=== PATIENT | male | born 1960 | race Caucasian/White ===

== ENCOUNTER → 2018-04-11 15:27 | Outpatient (CLI) | payer OTHER, SELFPAY ==
--- NOTE | 2018-04-11 | DI.CT.S_ITS ---
PROCEDURE: CT ABDOMEN PELVIS WO/W CON INDICATIONS: HEMATURIA TECHNIQUE: Optional 5 mm thick noncontrast images acquired from the diaphragm to the symphysis pubis. After the administration of intravenous contrast, 5 mm thick images acquired from the diaphragm to the symphysis pubis after a 10-minute delay. 2 mm thick coronal and sagittal reformats were then performed of the kidneys and ureters. For radiation dose reduction, the following was used: automated exposure control, adjustment of mA and/or kV according to patient size. COMPARISON: [place], [place], BONE SCAN WHOLE BODY, 12/21/2012, 14:43. FINDINGS: Image quality: Excellent. Lung bases: Lung bases are clear. Heart size is normal. A small hiatal hernia is incidentally noted. Urinary system: Both kidneys are normal in size, without hydronephrosis or nephrolithiasis on pre-contrast images. No perinephric fat stranding. There is normal bilateral renal enhancement. There is a nonenhancing right renal cyst is seen posteriorly and inferiorly measuring 2.8 cm and 8 Hounsfield units. Renal calyces appear normal in morphology when filled with contrast. Opacified portions of both ureters demonstrate normal caliber. Bladder wall thickness is normal. No calcified bladder stones. Other solid organs: Liver is normal in size and enhancement. Gallbladder wall does not appear thickened. Biliary system is non dilated. Pancreas enhances normally. Spleen is normal in size and enhancement. Bilateral thickening can be seen on the adrenal glands, yet without shakila adrenal nodules. Peritoneum and bowel: Bowel loops demonstrate normal wall thickness and caliber. No free fluid or air. Diverticulosis is seen, without findings of active diverticulitis. Nodes and vessels: No retroperitoneal or mesenteric adenopathy by size criteria. Aorta and inferior vena cava are normal in size. Atherosclerotic calcification is noted. Abdominal wall: No ventral hernias. Pelvis: No pathologic free pelvic fluid. No inguinal hernias or adenopathy. Bones: No suspicious bony lesions. No vertebral body compression fractures. Degenerative changes are seen throughout, which are most prominent involving the lower lumbar spine. IMPRESSION: No imaging explanation is found for this patient's presenting history of hematuria. Specifically, no renal stones or renal masses can be seen. No ureteral masses or bladder lesions can be seen. Incidental note is made of: Simple appearing right renal cyst Small hiatal hernia Diverticulosis is seen, without findings of active diverticulitis. Dictated by: Javier Cueto M.D. on 04/11/2018 at 15:13 Approved by: Javier Cueto M.D. on 04/11/2018 at 15:17
== END ==
PROVIDERS: Visit Provider Family Medicine
DX: R31.9 Hematuria, unspecified (principal); N28.1 Cyst of kidney, acquired; K44.9 Diaphragmatic hernia without obstruction or gangrene; K57.90 Diverticulosis of intestine, part unspecified, without perforation or abscess without bleeding
CPT/HCPCS: 74178; Q9967

== ENCOUNTER → 2018-04-23 07:30 | Outpatient (CLI) | payer OTHER, SELFPAY ==
--- NOTE | 2018-04-23 | DI.MRI.S_ITS ---
PROCEDURE: MR LOWER LEG RT WO CON INDICATIONS: RIGHT PROXIMAL TIBIA MASS TECHNIQUE: Noncontrast coronal and sagittal T1 spin echo and STIR; axial T1 spin echo and T2 fast spin echo with fat saturation through the right tibia and fibula. COMPARISON: Outside Facility, [place], MRI LOWER EXT. JOINT W/WO CONTRAST, 05/28/2014, 8:07. Outside Facility, [place], MRI LOWER EXT. JOINT W/O CONTRAST, 02/21/2017, 9:04. [facility], [place], XR KNEE 3 VIEWS RIGHT, 02/21/2017, 11:48. FINDINGS: Image quality: Excellent. Bones: The visualized bone marrow demonstrates normal overall signal. There are 2 lobulated heterogeneous T2 hyperintense and T1 hypointense lesions redemonstrated within the distal femur. The larger lesion measures up to 2.3 x 1.8 x 2.0 cm and the smaller lesion measures 1.0 x 0.6 x 1.0 cm. These appear stable in size compared to the prior study with minimal increase in size compared to 05/28/14 study. The findings are compatible with chondroid lesions. Within the proximal tibia, there is a small lobulated T2 hyperintense lesion centrally adjacent to the ACL insertion measuring up to 0.8 x 0.5 x 0.7 cm. This appears stable in size compared to the prior studies. This may also represent a chondroid lesion versus a ganglion cyst. The overlying cortex appears intact. No fractures lines or bone contusions. Soft tissues: There is a minimal knee joint effusion. Small Gaytan's cyst is also noted. The knee structures are not well evaluated on the current study. The scanned muscles demonstrate normal overall bulk and internal signal. Subcutaneous tissues appear normal as well. No discrete soft tissue masses are identified. IMPRESSION: 1. 2 lobulated chondroid lesions within the distal femur appear stable in size compared to the prior 2016 study with minimal increase compared to the 2013 study. 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 2. Lobulated T2 hyperintense lesion within the proximal tibia may also represent a small chondroid lesion although its location also raises the possibility of an intraosseous ganglion cyst. This appears stable compared to the prior studies. Dictated by: Aj Ramirez M.D. on 04/23/2018 at 13:16 Approved by: Aj Ramirez M.D. on 04/23/2018 at 13:52
== END ==
PROVIDERS: Visit Provider Family Medicine
DX: M89.8X5 Other specified disorders of bone, thigh (principal); M89.8X6 Other specified disorders of bone, lower leg
CPT/HCPCS: 73718

== ENCOUNTER 2018-05-24 08:32 | Day surgery (SDC) | payer OTHER, SELFPAY ==
[2018-05-22 15:12] VITALS: BMI 24.7
[2018-05-24] VITALS (14 sets, daily range): BP systolic 94–129; BP diastolic 48–81; PULSE 72–91; RESP 10–16; TEMP 36–36.4; O2SAT 93–99; BMI 24.7
--- NOTE | 2018-05-24 09:53 | PM.PREOP ---
Pre-operative Note Interval Note Pre-op Check: Yes History & Physical Reviewed by Physician and Yes Exam Performed Changes: No
[2018-05-24] MEDS: CEFAZOLIN 2 GM/100 ML FROZ.PIGGY IV (10:10)
[2018-05-24] MEDS: LACTATED RINGERS 1,000 ML 100 ML IV ×3 (10:15→14:05)
--- NOTE | 2018-05-24 10:35 | SUR.OPER ---
Lateral on padded OR bed, head on pillow, bottom leg bent with gel pad under knee to foot, upper leg straight and supported with pillows. Upper arm supported by pillows and secured over chest. Safety belt at hip, tape over blanket lower legs.
[2018-05-24] MEDS: BUPIVACAINE 0.5% (PF) VIAL 30 ML INJ (10:51)
--- NOTE | 2018-05-24 12:31 | PM.OP.1 ---
Operative Date/Time/Diagnoses Date of procedure: 05/24/18 Time of procedure: 12:10 Pre-op diagnosis: Probable spigelian hernia left Post-op diagnosis: same Procedure & Clinicians Procedure: Repair with underlay of mesh Same procedure as scheduled: Yes Indications: Bulge left flank after lifting heavy object at work. Clinically consistent with a spigelian hernia Surgeon: Sachin Escoto Click Yes if Unassisted: Yes Anesthesia Type: General Operative Notes Findings: Attenuated area of muscle if the edge of the rectus. Sheet of mesh placed under the muscle wall extensively beyond the confines of this. Closure Type: primary Specimen(s): none sent Implants & Drains: 15 x 10 cm sheet of Atrium mesh Estimated Blood Loss (mL): 10 Procedure in detail: The patient was placed in the partial right lateral decubitus position with the areas padded. He was secured and prepped and draped in the usual fashion. He had been marked preoperatively. An incision was made overlying the area of the bulge beginning near the lateral aspect of the rectus. It was carried down to the external oblique which was opened parallel with its fibers. The internal oblique was similarly opened in parallel with its fibers and the transversalis opened reaching the retroperitoneal preperitoneal space. I gently dissected the fat away from the abdominal wall quite extensively extending to nearly midline anteriorly inferiorly toward the iliac crest superiorly behind the ribcage and laterally behind the latissimus I placed a piece of mesh 10 x 15 tapering it slightly to conform to size in the preperitoneal/retroperitoneal space. I had not entered the abdomen proper. The mass was secured to muscle carefully avoiding any vascular or neurologic structures. This was done circumferentially with a slight laxity in the middle to allow for bulging postoperatively of the preperitoneal fat. Two 0 PDS was a suture used to secure the mesh. This mesh well it well beyond any confines where the bulge had been noted preoperatively. The transversalis was closed with a [id number] interrupted 0 Vicryl. The external and internal obliques were closed with a figure of 8 0 Tycron suture. The subcu was closed with interrupted 3 0 Vicryl and skin was closed running 4 0 Vicryl subcuticular stitch and Steri-Strips. The patient was awakened and taken to the recovery area in good condition. Complications: none Condition: stable Disposition: PACU Plan for aftercare: 10-14 days in the office
[2018-05-24] MEDS: fentaNYL 100 MCG/2 ML INJ 50 MCG IV ×4 (12:35→13:08)
[2018-05-24] MEDS: OXYCODONE/ACETAMINOPHEN 5/325 TABLET 1 TAB PO (12:40)
[2018-05-24] MEDS: ONDANSETRON 4 MG/2 ML INJ IV (12:40)
--- NOTE | 2018-05-24 12:48 | SUR.PHASEI ---
REPORTED PATIENT OFF TO ADA BRADLEY.
--- NOTE | 2018-05-24 12:53 | SUR.PHASEI ---
recieved report from emiliana prince. pt awake , tolerating po fluids, dressing is dry and intact, no redness or swelling at site. pt c/o 01/26 pain, ice pack is in place, will medicate per order.
--- NOTE | 2018-05-24 13:39 | SUR.PHASEII ---
PT ARRIVED TO PHASE II VIA STRETCHER. PT SITTING UP IN BED. PT BROUGHT TO BEDSIDE. IV SITE CLEAR. SURGICAL DRSG OBSERVED TO HAVE SCANT AMOUNT OF DRAINAGE. PT REPORTS NAUSEA IS IMPROVING AND PAIN IS ALSO IMPROVING /. PT REQUESTING TO REST AT THIS TIME. REVIEWED DC INSTRUCTIONS WITH PT AND PT FAMILY. BED IN LOWEST POSITON AND CALL LIGHT GIVEN TO PT.
[2018-05-24] MEDS: METOCLOPRAMIDE 10 MG/2 ML INJ IV (14:09)
--- NOTE | 2018-05-24 14:09 | SUR.PHASEII ---
PT C/O FEELING NAUSATED. PT HAD ONE EMESIS. PROVIDED PT WITH COOL CLOTH, QUEASE EASE AND MEDICATED WITH IV NAUSEA MEDICATION. PT AT BEDSIDE. BED IN LOWEST POSITION AND CALL LIGHT GIVEN TO PT.
--- NOTE | 2018-05-24 14:53 | SUR.PHASEII ---
drsg on surgical site observed to have no change in drainage amount from time pt arrived to phase II
--- NOTE | 2018-05-24 16:32 | P.OP_ITS ---
Operative Date/Time/Diagnoses Date of procedure: 05/24/18 Time of procedure: 16:20 Pre-op diagnosis: Left inguinal hernia reducible Post-op diagnosis: same (Direct left inguinal hernia. Very small lipoma of the cord.) Procedure & Clinicians Procedure: Repair of left inguinal hernia with plug and patch technique Same procedure as scheduled: Yes Indications: Symptomatic hernia Surgeon: Sachin Escoto Click Yes if Unassisted: Yes Anesthesia Type: General Operative Notes Closure Type: primary Specimen(s): none sent Implants & Drains: Mesh. small plug. Estimated Blood Loss (mL): 5 Blood products transfused: none Procedure in detail: The patient was placed supine on the operating room table and underwent general LMA anesthesia. He was prepped and draped in the usual fashion. A transverse incision was made overlying the internal ring on the left side and carried down to the level of the external oblique. The external oblique was opened parallel with its fibers through the external ring. The cord structures were elevated. The cremaster was opened proximally and search made for an indirect sac. The patient had a very small so-called lipoma of the cord. This was dissected from the surrounding cord structures and cauterized at the level of the deep epigastric vessels. I could identify no indirect sac despite searching for 1. His cord was quite diminutive.. The floor was examined and was found to be generally weakened. A small plug was placed in the defect created by the lipoma. This was tacked into place with 0 Tycron sutures. The cremaster muscle was reapproximated with interrupted figure-of- eight 3 0 Vicryl. A patch was placed across the floor and tacked at the pubic tubercle, the posterior lamella of the anterior rectus sheath, the ilioinguinal ligament, and superior lateral to the cord. Sutures of 0 Tycron were used to secure the mesh. The external oblique was closed with a running 3 0 Vicryl. The subcu was closed with interrupted 4 0 Vicryl. The skin was closed with a running 4 0 Vicryl subcuticular stitch and Steri-Strips. Dressing was applied, the patient was awakened, and the patient was taken to the recovery area in good condition. Complications: none Condition: stable Disposition: PACU Plan for aftercare: Follow-up in the office
== END 2018-05-24 12:50 | disposition home or self-care (01) ==
PROVIDERS: PCP Family Medicine; Visit Provider Specialist
PROC: (CPT 49590; principal; 2018-05-24 09:30)
DX: K43.9 Ventral hernia without obstruction or gangrene (principal)
CPT/HCPCS: 49590; C1781; J0690; J1100; J1885; J2250; J2405; J2704; J2765; J3010

== ENCOUNTER 2018-08-17 06:44 | Day surgery (SDC) | payer OTHER, SELFPAY ==
[2018-08-17 07:08] VITALS: BP 112/76; PULSE 90; RESP 15; TEMP 36.9; O2SAT 96; BMI 22.8
--- NOTE | 2018-08-17 08:01 | PM.HP.1 ---
History of Present Illness Date Patient Seen: 08/17/18 Time Patient Seen: 07:50 Chief complaint: [id number] Narrative: The patient is gentleman here for screening colonoscopy. His last exam was 5 years ago. Polyps removed at that time. Patient History Medical History Benign neoplasm of tibia (Acute) History of torn meniscus of right knee (Acute) [place] teeth removed (Acute) Surgical History Status post spigelian hernia repair, follow-up exam (Resolved) H/O left inguinal hernia repair (Resolved 01/03/17) Family History Father Heart disease Diabetes mellitus Stroke Social History marital status: household members: spouse and children occupational status: employed Smoking Status: Smoker, status unknown alcohol intake: current substance use type: does not use Family & Social History Family History Father Heart disease Diabetes mellitus Stroke Social History: household members spouse,children Tobacco & Substance use: Tobacco type cigarettes Smoking Status Smoker, status unknown alcohol intake current Substance Use Type does not use Meds Home Medications Medication Instructions Recorded Confirmed Type tamsulosin 0.4 mg PO DAILY 08/17/18 08/17/18 History Allergies Allergy/AdvReac Type Severity Reaction Status Date / Time No Known Drug Allergies Allergy Verified 08/17/18 06:56 Review of Systems Review of Systems All systems reviewed & are unremarkable except as noted in HPI and below Exam Vital Signs (past 8 hours): - 08/17/18 07:08 Temperature 98.4 F Pulse Rate 90 Respiratory Rate 15 Blood Pressure 112/76 Pulse Oximetry 96 Oxygen Delivery Method Room Air Narrative Exam Narrative: No apparent distress. Eyes nonicteric. Lungs are clear to auscultation no rales or rhonchi. Heart regular rate and rhythm no murmurs gallops. Abdomen soft nontender without mass. No obvious recurrence of his hernia. Alert and oriented x3. Assessment & Plan Assessment & Plan narrative: Patient here for screening colonoscopy. I have discussed the procedure and the rationale with the patient including risks of bleeding, perforation which would necessitate a major operation, failure to find remove all lesions and the potential to tattoo. They appeared to understand and wished to proceed.
--- NOTE | 2018-08-17 08:04 | P.HP_ITS ---
History of Present Illness Date Patient Seen: 08/17/18 Time Patient Seen: 07:50 Chief complaint: [id number] Narrative: The patient is gentleman here for screening colonoscopy. His last exam was 5 years ago. Polyps removed at that time. Patient History Medical History Benign neoplasm of tibia (Acute) History of torn meniscus of right knee (Acute) [place] teeth removed (Acute) Surgical History Status post spigelian hernia repair, follow-up exam (Resolved) H/O left inguinal hernia repair (Resolved 01/03/17) Family History Father Heart disease Diabetes mellitus Stroke Social History marital status: household members: spouse and children occupational status: employed Smoking Status: Smoker, status unknown alcohol intake: current substance use type: does not use Family & Social History Family History Father Heart disease Diabetes mellitus Stroke Social History: household members spouse,children Tobacco & Substance use: Tobacco type cigarettes Smoking Status Smoker, status unknown alcohol intake current Substance Use Type does not use Meds Home Medications Medication Instructions Recorded Confirmed Type tamsulosin 0.4 mg PO DAILY 08/17/18 08/17/18 History Allergies Allergy/AdvReac Type Severity Reaction Status Date / Time No Known Drug Allergies Allergy Verified 08/17/18 06:56 Review of Systems Review of Systems All systems reviewed & are unremarkable except as noted in HPI and below Exam Vital Signs (past 8 hours): - 08/17/18 07:08 Temperature 98.4 F Pulse Rate 90 Respiratory Rate 15 Blood Pressure 112/76 Pulse Oximetry 96 Oxygen Delivery Method Room Air Narrative Exam Narrative: No apparent distress. Eyes nonicteric. Lungs are clear to auscultation no rales or rhonchi. Heart regular rate and rhythm no murmurs gallops. Abdomen soft nontender without mass. No obvious recurrence of his hernia. Alert and oriented x3. Assessment & Plan Assessment & Plan narrative: Patient here for screening colonoscopy. I have discussed the procedure and the rationale with the patient including risks of bl eeding, perforation which would necessitate a major operation, failure to find remove all lesions and the potential to tattoo. They appeared to understand and wished to proceed.
--- NOTE | 2018-08-17 08:04 | PM.PREOP ---
Pre-operative Note Interval Note History & Physical reviewed/Exam performed by Physician: Yes Changes to H&P: No ASA Class (for procedural sedation): I
[2018-08-17] MEDS: MIDAZOLAM 5 MG/5 ML VIAL IV (08:34)
[2018-08-17 08:35] VITALS: BP 105/59; PULSE 79; RESP 10; O2SAT 95
[2018-08-17] MEDS: fentaNYL 250 MCG/5 ML INJ IV (08:35)
--- NOTE | 2018-08-17 08:39 | PM.OP.ENDO ---
Operative Date/Time/Diagnoses Date of procedure: 08/17/18 Time of procedure: 08:31 Pre-op diagnosis: History of polyps. Screening exam. Last colonoscopy 5 years ago. Post-op diagnosis: same (Diverticulosis of the sigmoid colon. Enlarged very firm prostate) Procedure & Clinicians Study performed: Colonoscopy Same procedure as scheduled: Yes Indications: Screening Surgeon: Sachin Escoto Procedure Notes SCOAP/Timeout: Performed Procedure in detail: The patient was placed in the left lateral decubitus position and underwent IV sedation directed by the surgeon consisting of fentanyl and Versed. Digital exam was remarkable for a fairly tight anus. I applied some lidocaine gel to his anal verge.. The scope was inserted and advanced through the rectum into the sigmoid, descending, transverse, and ascending colon. I noted sigmoid diverticulosis which were fairly extensive but localized.. The cecum was reached by applying pressure to the abdomen. It was identified by the ileocecal valve and the appendiceal opening. The scope was gradually brought out. No Polyps were found. The scope ultimately was retroflexed in the rectum. The appearance was normal. The scope was removed and the patient tolerated the procedure well. Prep was excellent. Scope withdrawal time: Six and 0.5 min Sedation minutes: 22 Findings: diverticulosis (Sigmoid) and other findings (Enlarged very firm prostate) Specimen(s): none sent Complications: none Recommendations: Colonscopy in 5 years and Other recommendation (Consider PSA testing for your prostate) Follow up: as needed Disposition: PACU
[2018-08-17 08:40] VITALS: BP 97/62; PULSE 79; RESP 13; O2SAT 94
[2018-08-17 08:46] VITALS: BP 110/73; PULSE 80; RESP 11; O2SAT 96
[2018-08-17 09:07] VITALS: BP 110/72; PULSE 72; RESP 12; TEMP 36.7; O2SAT 98
== END 2018-08-17 09:10 | disposition home or self-care (01) ==
PROVIDERS: PCP Family Medicine; Visit Provider Specialist
PROC: 0DJD8ZZ Inspection of Lower Intestinal Tract, Via Natural or Artificial Opening Endoscopic (ICD-10-PCS; CPT 45378; principal; 2018-08-17 07:45)
DX: Z86.010 Personal history of colon polyps (principal); K57.30 Diverticulosis of large intestine without perforation or abscess without bleeding; N40.0 Benign prostatic hyperplasia without lower urinary tract symptoms
CPT/HCPCS: 45378; J2250; J3010

== ENCOUNTER → 2020-12-08 09:40 | Outpatient (CLI) | payer OTHER, SELFPAY ==
--- NOTE | 2020-12-08 | DI.MRI.S_ITS ---
PROCEDURE: MR KNEE RT WO/W CON INDICATIONS: Distal femur mass. Proximal tibia mass TECHNIQUE: Noncontrast sagittal PD fast spin echo and T2 fast spin echo with fat saturation, sagittal 3-D FLASH with fat saturation; coronal T1 spin echo and PD fast spin echo with fat saturation, and axial T1 spin echo and PD fast spin echo with fat saturation through the knee. Post-contrast axial, coronal, and sagittal T1 spin echo with fat saturation through the knee. COMPARISON: Outside Facility, , MRI LOWER EXT. JOINT W/O CONTRAST, 02/21/2017, 9:04. Outside Facility, [place], MRI LOWER EXT. JOINT W/WO CONTRAST, 05/28/2014, 8:07. Outside Facility, , MRI LOWER EXT. JOINT W/WO CONTRAST, 10/31/2013, 7:37. [place], [place], BONE SCAN WHOLE BODY, 12/21/2012, 14:43. [facility], MR LOWER LEG RT WO CON, 04/23/2018, 7:53. FINDINGS: Image quality: Excellent. Menisci: There is horizontal tear involving the posterior horn and body of the medial meniscus extending to the inferior articular surface. Lateral meniscal extrusion. There is ill-defined degenerative tear involving the anterior horn body of the lateral meniscus. The meniscal root ligaments appear intact. Cruciate ligaments: Mild mucoid degeneration of the anterior cruciate ligament. The posterior cruciate ligaments appear intact. Medial structures: The medial collateral ligament appears intact. The posterior oblique ligament, semimembranosus tendon insertions, and oblique popliteal liagment, and meniscocapsular junction appear intact. Visualized portions of the pes anserinus tendons appear normal. No abnormal bursal fluid. Lateral structures: The lateral collateral ligament, long and short heads of the biceps femoris tendon appear intact. The popliteus tendon appears normal; the popliteofibular ligament appears intact. The posterosuperior and anteroinferior popliteomeniscal fascicles appear intact. The arcuate and fabellofibular ligaments appear intact, around the lateral inferior geniculate artery. Iliotibial band appears normal. Anterior structures: The quadriceps and patellar tendons appear intact. Patellar alignment is normal. No femoral trochlear dysplasia or ventral trochlear prominence. No edema in the infrapatellar fat pad. Bones and cartilage: There is a 2.2 x 2.2 x 2.3 cm chondroid mass in the distal femoral metaphysis just above the intercondylar notch, which demonstrates MRI characteristics suggesting an enchondroma. Adjacent and posterior to the mass within the distal femoral metaphysis, there is a smaller 0.6 x 1.1 x 1.0 cm chondroid lesion. In the proximal tibia beneath the tibial eminence at the ACL insertion, there is a 0.5 x 0.4 x 0.7 cm chondroid lesion. Pole 3 lesions are unchanged in size compared to the last exam. No bone marrow contusions or fractures. 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 Joint space: There is moderate knee joint effusion. There is a [id number] sized Gaytan's cyst. Normal appearing synovial plicae are incidentally noted. No suspicious soft tissue enhancement. IMPRESSION: 1. Stable chondral lesions in the distal femur and proximal tibia. 2. Horizontal tear of the posterior horn and body of the medial meniscus. 3. Lateral meniscal extrusion and degenerative tear of the anterior horn and body body. 4. Mild mucoid degeneration of ACL. 5. Moderate-sized knee joint effusion. 6. A [id number] sized Gaytan cyst. 7. Mild tricompartmental chondromalacia. Dictated by: Ryland Huang M.D. on 12/08/2020 at 14:04 Approved by: Ryland Huang M.D. on 12/08/2020 at 17:50
== END ==
PROVIDERS: PCP Student in an Organized Health Care Education/Training Program; Referring Provider Student in an Organized Health Care Education/Training Program; Visit Provider Student in an Organized Health Care Education/Training Program
DX: R22.41 Localized swelling, mass and lump, right lower limb (principal); S83.241A Other tear of medial meniscus, current injury, right knee, initial encounter; S83.281A Other tear of lateral meniscus, current injury, right knee, initial encounter; M25.461 Effusion, right knee; M71.21 Synovial cyst of popliteal space [Baker], right knee; M94.261 Chondromalacia, right knee
CPT/HCPCS: 73723; A9579

== ENCOUNTER → 2020-12-08 11:08 | Outpatient (CLI) | payer OTHER, SELFPAY ==
--- NOTE | 2020-12-08 11:14 | DIET.PN ---
Dietary Progress Note Assessment: 59y M attending nutrition visit for pre-DM and elevated FBG. 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 Usual Day: 5am double espresso, 10-15 minute walk c dog workout 30 minutes including stretching-situps, pushups shower 7am Protein Drink- cold brew with vanilla protein powder ([employer]) 8:30am: 3 Go Oat balls sometimes a little pure Maple syrup work at standing and sitting desk, often balance board 11am and 2pm snacks throughout on lunch often leftovers-pasta, burger, maybe salt and vinegar chips Dinner: healthy meal downfall evening snacking, [employer] cheesecake and creme brulee is substituting fruit now- one nectarine or peach tries to eat more veggies- cauliflower raw c blue cheese dressing likes Mohawk soda, vanilla ledezma frappuccino c shot of espresso from [employer] c whipped cream daughter is home from college and 19yo goes golfing twice per week walking the 18 holes, once per week 30-40min Labs: A1c 5.7, FBG 117 Nutrition Diagnosis: altered nutrition related laboratory values (A1c, FBG) r/t excessive consumption of carbohydrates aeb A1c 5.7 (preDM), FBG 117, pt reports having a sweet tooth and likes to have sweets in evening. Interventions: 1. To improve glycemic control, educated pt on FBG and A1c factors which improve and factors which worsen these values. Focus on consistent carbohydrate diet and physical activity with strength training. 2. To improve glycemic control, discussed balanced plate eating using a Mediterranean eating style and limiting carbohydrates to 45g/meal or 30g/snack with no more than 25g added sugar daily. Collaborated c pt on looking up carb and sugar amounts of some of his favorite treats and discussed alternatives. 3. Educated pt on role of physical activity and strength training for reducing insulin resistance. 4. Provided pt c Mediterranean meal plan with ideas for breakfast/lunch/dinner/snacks. EER:45g CHO/meal, 30g CHO/snack Monitoring/Evaluations: f/u in 4w via Telehealth to assess progress and problem solve barriers.
== END ==
PROVIDERS: PCP Student in an Organized Health Care Education/Training Program; Referring Provider Student in an Organized Health Care Education/Training Program; Visit Provider Student in an Organized Health Care Education/Training Program
DX: R73.03 Prediabetes (principal); R79.9 Abnormal finding of blood chemistry, unspecified; Z71.3 Dietary counseling and surveillance
CPT/HCPCS: 97802

== ENCOUNTER → 2021-01-07 14:30 | Outpatient (CLI) | payer OTHER, SELFPAY ==
--- NOTE | 2021-01-07 14:32 | DIET.PN ---
Dietary Progress Note 60y M attending telehealth 1 month f/u for preDM. Pt has reviewed Mediterranean diet and is following it the majority of the time along with his . Pt has reduced intake of sugar and carbs. Is sticking to 30g CHO at snacks and 45g at meals. Pt is having fruit at dessert instead of cake, pie, cookies. Pt has some GERD like symptoms often after spicy foods. Labs: A1c 5.7, FBG 117 Nutrition Diagnosis: altered nutrition related laboratory values (A1c, FBG) r/t excessive consumption of carbohydrates aeb A1c 5.7 (preDM), FBG 117, pt reports having a sweet tooth and likes to have sweets in evening. Interventions: 1. Discussed pts dietary changes over the past month and reiterated his great work. 2. Educated pt on foods which can aggravate GERD including: greasy, spicy, cooked tomato, garlic, mint. Pt will eat each separately over the next month to see his tolerance level as pt would prefer not to go on a PPI or eat rolaids like he did back when he smoked cigarettes. Monitoring/Evaluation: f/u in 5w to assess progress and problem solve barriers.
== END ==
PROVIDERS: PCP Student in an Organized Health Care Education/Training Program; Referring Provider Student in an Organized Health Care Education/Training Program; Visit Provider Student in an Organized Health Care Education/Training Program
DX: R73.03 Prediabetes (principal); Z71.3 Dietary counseling and surveillance
CPT/HCPCS: 97803

== ENCOUNTER → 2021-04-21 10:31 | Outpatient (CLI) | payer OTHER, SELFPAY ==
--- NOTE | 2021-02-18 14:31 | DIET.PN1 ---
Dietary Progress Note 60y M attending telehealth f/u for preDM. Pt has had no major incidence c GERD sx since last visit, has changed a few things in diet: isnt drinking wine after dinner, moderating portion sizes, smaller portions kimchi. Pt enjoying mostly pescatarian Mediterranean diet. Continues to moderate carbs to 35-45g per meal. Continues to work out each morning and golf twice per week. Pt has some fatigue in the afternoons, wondering if caffeine related. Wondering if can eat potatoes and how much. Pt will try adding protein drink in afternoons and will ask for B12 level during next lab set. Pt will limit potato intake to fist sized serving. Pt will call to schedule f/u as needed after yearly lab work.
== END ==
PROVIDERS: PCP Student in an Organized Health Care Education/Training Program; Referring Provider Student in an Organized Health Care Education/Training Program; Visit Provider Student in an Organized Health Care Education/Training Program
DX: R73.03 Prediabetes (principal)
CPT/HCPCS: 97803

== ENCOUNTER → 2021-05-18 15:02 | Outpatient (CLI) | payer OTHER, SELFPAY ==
--- NOTE | 2021-05-18 15:27 | DIET.PN1 ---
Dietary Progress Note Assessment: 60y M attending f/u telehealth visit for preDM. Pt reports got labs drawn recently with A1c remaining at 5.7. While pt disappointed he did not have lowering of value, feels proud that it has not gone up and he has made very healthy modifications to his lifestyle including following a mostly pescatarian Mediterranean diet with daily morning workout. Pts FBG 93, renal, liver, BMI, TGs, cholesterol all WNL. Pt has almost eliminated GERD sx through moderating portion sizes, limiting spicy foods and kimchi. Discussed mercury levels of fish now that he is eating more frequently. Discussed limiting halibut and albacore to 2-3x/mo but freely eating other local fish and shellfish including: salmon, sardines, shrimp, scallops, crab, oysters, clams, etc. Monitoring/Evaluations: pt will schedule f/u prn. Telehealth visit conducted via [employer] computer virtual video call between Munira Beavers RD from hospital office and Meir Calderon patient from his home office. Electronically Signed by: Munira Beavers 05/18/21 15:27 Clinical Dietitian [address] [id number]
== END ==
PROVIDERS: PCP Student in an Organized Health Care Education/Training Program; Referring Provider Student in an Organized Health Care Education/Training Program; Visit Provider Student in an Organized Health Care Education/Training Program
DX: R73.03 Prediabetes (principal); K21.9 Gastro-esophageal reflux disease without esophagitis; Z71.3 Dietary counseling and surveillance
CPT/HCPCS: 97803